=== PATIENT | male | born 1980 ===

== ENCOUNTER 2019-01-08 06:13 | Emergency (ER) | payer OTHER ==
--- NOTE | 2019-01-08 08:56 | Emergency Department Report ---
- General Chief Complaint: Upper Respiratory Infection Stated Complaint: COUGH Time Seen by Provider: 01/08/19 07:16 Source: patient Mode of arrival: Ambulatory Limitations: Language Barrier - History of Present Illness Initial Comments: 39-year-old male presents to ED with dry cough 1 week. Denies fever. Cough is nonproductive. Patient reports chest pain and headache with the cough. Patient reports he was diagnosed with tuberculosis several years ago while in [place]. He states he took medication for 1 year, but could not afford it further after that. Denies hemoptysis, night sweats, incarceration currently. Denies any sick contacts. MD Complaint: cough -: week(s) (1) Severity: moderate Consistency: constant Improves With: nothing Worsens With: nothing Associated Symptoms: headache, cough, chest pain - Related Data Previous Rx's Medication Instructions Recorded Last Taken Type Benzonatate [Tessalon Perles] 100 mg PO Q8HR PRN #20 capsule 01/08/19 Unknown Rx Naproxen [Naprosyn] 500 mg PO BID #20 tablet 01/08/19 Unknown Rx Allergies Allergy/AdvReac Type Severity Reaction Status Date / Time No Known Allergies Allergy Verified 01/08/19 06:29 ED Review of Systems ROS: Stated complaint: COUGH Other details as noted in HPI Comment: All other systems reviewed and negative Constitutional: denies: chills, fever Respiratory: cough, other (denies hemoptysis). denies: shortness of breath, wheezing Gastrointestinal: denies: nausea, vomiting Musculoskeletal: other (reports chest wall pain with cough) Neurological: headache (with cough) ED Past Medical Hx - Past Medical History Previous Medical History?: Yes Hx Tuberculosis: Yes - Surgical History Past Surgical History?: No - Social History Smoking Status: Never Smoker Substance Use Type: Alcohol - Medications Home Medications: Home Medications Medication Instructions Recorded Confirmed Last Taken Type Benzonatate [Tessalon Perles] 100 mg PO Q8HR PRN #20 capsule 01/08/19 Unknown Rx Naproxen [Naprosyn] 500 mg PO BID #20 tablet 01/08/19 Unknown Rx ED Physical Exam - General Limitations: Language Barrier General appearance: alert, in no apparent distress - Head Head exam: Present: atraumatic, normocephalic - Eye Eye exam: Present: normal appearance - ENT ENT exam: Present: mucous membranes moist - Neck Neck exam: Present: normal inspection - Respiratory Respiratory exam: Present: normal lung sounds bilaterally, other (dry cough on exam). Absent: respiratory distress - Cardiovascular Cardiovascular Exam: Present: regular rate, normal rhythm - GI/Abdominal GI/Abdominal exam: Present: soft. Absent: distended, tenderness - Extremities Exam Extremities exam: Present: normal inspection - Neurological Exam Neurological exam: Present: alert, oriented X3 - Psychiatric Psychiatric exam: Present: normal affect, normal mood - Skin Skin exam: Present: warm, dry, intact, normal color ED Course Vital Signs 01/08/19 01/08/19 01/08/19 06:18 08:00 09:00 Temperature 98.3 F Pulse Rate 81 70 70 Respiratory 20 15 15 Rate Blood Pressure 146/88 134/89 128/80 O2 Sat by Pulse 96 96 97 Oximetry 01/08/19 01/08/19 01/08/19 10:00 11:00 12:00 Temperature Pulse Rate 58 L 77 71 Respiratory 10 L 13 13 Rate Blood Pressure 128/80 122/94 120/81 O2 Sat by Pulse 98 97 97 Oximetry ED Medical Decision Making - Lab Data Result diagrams: 01/08/19 09:28 01/08/19 09:28 - Radiology Data Radiology results: report reviewed, image reviewed - Medical Decision Making - URI sx's for 1 week - afebrile, vitals normal - CXR normal, no infiltrate - will d/c at this time, rx given for naprosyn and tessalon - return precautions given - outpt f/u advised - Differential Diagnosis URI, pneumonia, influenza Critical care attestation.: If time is entered above; I have spent that time in minutes in the direct care of this critically ill patient, excluding procedure time. ED Disposition Clinical Impression: URI (upper respiratory infection) Disposition: -01 TO HOME OR SELFCARE Is pt being admited?: No Condition: Stable Instructions: Upper Respiratory Infection (ED) Prescriptions: Naproxen [Naprosyn] 500 mg PO BID #20 tablet Benzonatate [Tessalon Perles] 100 mg PO Q8HR PRN #20 capsule PRN Reason: Cough Referrals: RUBA FORDE MD [Primary Care Provider] - 3-5 Days Time of Disposition: 10:54 Print Language: UKRAINIAN
--- NOTE | 2019-01-08 09:08 | XRay Report ---
AP CHEST: HISTORY: Cough AP view of the chest demonstrates a normal mediastinal and cardiac contour with clear lungs and normal bony and soft tissue structures. IMPRESSION: Unremarkable AP chest.
[2019-01-08 09:37] LABS: Basophils % (Auto) 0.6 % (0.0-1.8); Eosinophils % (Auto) 11.5 % (0.0-4.3); Hematocrit 47.5 % (35.5-45.6); Hemoglobin 16.4 gm/dl (11.8-15.2); Lymphocytes # (Auto) 2.4 K/mm3 (1.2-5.4); Mean Corpuscular HGB Conc 35 % (32-34); Mean Corpuscular Volume 91 fl (84-94); Monocytes # (Auto) 0.7 K/mm3 (0.0-0.8); Monocytes % (Auto) 8.2 % (0.0-7.3); Platelet Count 271 K/mm3 (140-440); Red Blood Count 5.22 M/mm3 (3.65-5.03)
[2019-01-08 10:01] LABS: BUN/Creatinine Ratio 16; Blood Urea Nitrogen 13 mg/dL (9-20); Calcium 8.8 mg/dL (8.4-10.2); Hemolysis Index 23
[2019-01-08 12:51] VITALS: BP 120/81
== END 2019-01-08 11:20 | disposition home or self-care (01) ==
LOC: ED 06:13
DX: J06.9 Acute upper respiratory infection, unspecified (principal); Z79.899 Other long term (current) drug therapy
CPT/HCPCS: 36415; 71045; 80048; 85025; 99283